=== PATIENT | female | born 1955 | race Caucasian/White ===

== ENCOUNTER 2022-10-17 12:29 | Emergency (ER) | payer MEDICARE, BC, SELFPAY ==
[2022-10-17 12:34] VITALS: BP 137/78; PULSE 109; RESP 16; TEMP 36.8; O2SAT 95; BMI 27.0
--- NOTE | 2022-10-17 13:30 | ED_ITS ---
HPI - General Adult General Time Seen by Provider: 13:30 Date Seen: 10/17/22 Chief complaint: Arrhythmia/Palpitations Stated complaint: Elevated heartrate Time Seen by Provider: 10/17/22 12:56 Source: patient Mode of arrival: ambulatory Limitations: no limitations History of Present Illness HPI narrative: Nidhi is a 66-year-old female past medical history includes depression and anxiety presents emerged department via private car with heart palpitations. Patient states that the ended August she developed a nonproductive cough, and some left-sided chest discomfort with the cough, she was seen in Urgent Care on 10/07, prescribed some prednisone for 5 days, EKG at that time showed a sinus tachycardia, diagnosed with bronchitis and pleurisy, she was followed up with her primary care provider on 10/15, her cough has improved as well as her chest discomfort, she has been taking 600 mg oral ibuprofen, she feels that her heart rate continues to be elevated, as well as her blood pressure, she was given an additional taper of prednisone. XR chest PA and lateral showed no acute cardiopulmonary process, D-dimer was negative, CBC metabolic panel within normal limits, her TSH was pending. She denies any cough, chest pain or shortness of breath, she denies any nausea vomiting dizziness or lightheadedness. Patient has not been on prednisone in the past. Related Data Home Medications Medication Instructions Recorded Confirmed bupropion HCl 300 mg 24 hr tablet, 300 mg PO DAILY 06/21/22 10/17/22 extended release citalopram 20 mg tablet 20 mg PO DAILY 06/21/22 10/17/22 levothyroxine 50 mcg tablet 50 mcg PO DAILY 06/21/22 10/17/22 simvastatin 40 mg tablet 40 mg PO DAILY 06/21/22 10/17/22 azithromycin 250 mg tablet 250 mg PO DAILY 10/17/22 10/17/22 Previous Rx's Medication Instructions Recorded prednisone 20 mg tablet 40 mg PO QDAY #10 tabs 10/07/22 Allergies Allergy/AdvReac Type Severity Reaction Status Date / Time sulfamethoxazole Allergy Mild Rash Verified 10/17/22 12:39 [From ] trimethoprim [From ] Allergy Mild Rash Verified 10/17/22 12:39 Review of Systems Status of ROS: Reports: 10 or more systems reviewed and unremarkable except as noted in History and below PFSH PFS Social History Smoking Status: Never smoker Do you use any of these nicotine containing products: None Second hand tobacco smoke exposure: No How often do you have a drink containing alcohol: never AUDIT-C Alcohol total score: 0 Non-prescribed substance use: denies use service: No Exam Narrative: Exam Narrative: General: No obvious distress sitting comfortably HEENT: Tympanic membranes within normal limits, and extraocular muscles intact, pupils equal round reactive to light Neck: Supple, full range of motion Heart: Sinus tachycardia Lungs: Clear to auscultation bilaterally Abdomen: Soft, nontender bowel sounds present :Muscle skeletal no lower extremity edema Neuro: Alert awake and oriented x3 Const: Vital Signs, click to edit/add: Vital Signs - 24 hr 10/17/22 12:34 10/17/22 14:34 Temperature 98.3 F Pulse Rate [Pulse Oximeter] 109 H 95 Respiratory Rate 16 18 Blood Pressure [Ri ght Upper Arm] 137/78 131/87 Pulse Oximetry 95 96 Oxygen Delivery Me thod Room Air Room Air Course Course Hospital Course: 1:15 PM: AIDET performed. Vitals show mild tachycardia 109, blood pressure normal at 137/78, she is afebrile, respiratory rate O2 sats within normal limits, reviewed imaging, EKG and labs from 2 days ago, plan would be to check a troponin I repeat her EKG, possible bat the prednisone med she is on his precipitating her symptoms. No acute findings found on recent workup. Differential diagnosis include but not limited to atrial fibrillation, SVT, sinus tachycardia, also life-threatening considerations were ventricular fibrillation and ventricular tachycardia, other considerations were thyroid abnormalities, metabolic abnormalities, anemia, pulmonary embolism, CAD as well as other etiologies. Reevaluation(s) Reevaluation #1: EKG showed a sinus tachycardia, BPM of 101, left axis deviation, ST and T-wave abnormality which was seen on previous 2 days ago, no acute changes compared to previous. Troponin level was within normal limits, plan would be to discharge, she will hold her prednisone at this time, to follow-up with her primary care provider over the next 5-7 days for ER follow-up and recheck. Return precautions given. Vital Signs Vital signs: Initial Vital Signs Temperature 98.3 F 10/17/22 12:34 Temperature Source Temporal Artery Scan 10/17/22 12:34 Pulse Rate 109 H 10/17/22 12:34 Pulse Rhythm 10/17/22 12:34 Pulse Strength 3+ Normal 10/17/22 12:34 Respiratory Rate 16 10/17/22 12:34 Blood Pressure 137/78 10/17/22 12:34 Blood Pressure Mean 97 10/17/22 12:34 Blood Pressure Position Sitting 10/17/22 12:34 Pulse Oximetry 95 10/17/22 12:34 Oxygen Delivery Method 10/17/22 12:34 Vital Signs Temperature 98.3 F 10/17/22 12:34 Pulse Rate 109 H 10/17/22 12:34 Respiratory Rate 16 10/17/22 12:34 Blood Pressure 137/78 10/17/22 12:34 Pulse Oximetry 95 10/17/22 12:34 Oxygen Delivery Method 10/17/22 12:34 Temperature 98.3 F 10/17/22 12:34 Pulse Rate 95 10/17/22 14:34 Respiratory Rate 18 10/17/22 14:34 Blood Pressure 131/87 10/17/22 14:34 Pulse Oximetry 96 10/17/22 14:34 Oxygen Delivery Method 10/17/22 14:34 Medical Decision Making Lab Data Labs: Lab Results 10/17/22 Range/Units 13:28 Troponin I < 0.01 L (0.01-0.04) ng/mL Discharge Plan Discharge Clinical Impression: Heart palpitations Patient Disposition: Home, Self-Care Condition: Improved Instructions: Heart Palpitations (ED) Additional Instructions: To follow up with primary care provider in the next 7-10 days, for ED follow up and recheck. Return if worsenig symptoms. Activity Level: No Restrictions Prescriptions: No Action prednisone 20 mg tablet 40 mg PO QDAY Qty: 10 0RF bupropion HCl 300 mg tablet extended release 24 hr 300 mg PO DAILY Label Comments: TAKE ONE TABLET BY MOUTH EVERY DAY levothyroxine 50 mcg tablet 50 mcg PO DAILY Label Comments: TAKE ONE TABLET BY MOUTH EVERY DAY citalopram 20 mg tablet 20 mg PO DAILY Label Comments: TAKE ONE TABLET BY MOUTH EVERY DAY simvastatin 40 mg tablet 40 mg PO DAILY Label Comments: TAKE ONE TABLET BY MOUTH EVERY DAY azithromycin 250 mg tablet 250 mg PO DAILY Label Comments: TAKE 2 TABLETS BY MOUTH DAY 1, THEN TAKE 1 TABLET BY MOUTH ONCE DAILY DAYS 2- 5 Follow Up/Referrals: Provider,Not a Local [Primary Care Provider] - Stand Alone Forms: [employer] Info Instructions
[2022-10-17 14:16] LABS: Troponin I* < 0.01 ng/mL (0.01-0.04)
[2022-10-17 14:34] VITALS: BP 131/87; PULSE 95; RESP 18; O2SAT 96
== END 2022-10-17 14:35 | disposition home or self-care (01) ==
LOC: ED 14:33
PROVIDERS: Emergency Provider Student in an Organized Health Care Education/Training Program
DX: R00.2 Palpitations (principal)
CPT/HCPCS: 36415; 84484; 93005; 99284